=== PATIENT | female | born 1990 | race Caucasian/White ===

== ENCOUNTER 2022-01-23 03:01 | Emergency (ER) | payer BC, SELFPAY ==
[2022-01-23 03:05] VITALS: BP 176/113; PULSE 90; RESP 18; TEMP 36.6; O2SAT 100
--- NOTE | 2022-01-23 03:40 | ED.DENTAL ---
HPI - Dental/Oral General Chief complaint: Dental/Oral Stated complaint: oral pain/nausea Time Seen by Provider: 01/23/22 03:05 Source: patient Mode of arrival: ambulatory Limitations: no limitations History of Present Illness HPI Narrative: Patient is a 31-year-old female complaining of toothache, right upper molar that started a few days ago worse tonight. Patient states her pain is 9 out of 10. Patient states that is scheduled to have her teeth pulled but having insurance issues. Denies any dysphagia, fever, chills or facial swelling. Related Data Allergies Allergy/AdvReac Type Severity Reaction Status Date / Time No Known Allergies Allergy Unverified 01/23/22 03:07 Review of Systems Review of Systems: Per HPI All systems reviewed & are unremarkable except as noted in HPI and below PMFSH Comments Past medical history: None Family history: Unknown Social history: Positive for smoker, no EtOH or drug use Exam Const: General: no acute distress and alert Orientation/consciousness: patient oriented x3 HENMT: General nose exam: Normal nares present Face and sinus: normal facial exam Mouth: Yes moist mucous membranes Throat: posterior oropharynx normal and uvula midline Other: Widespread dental caries and tooth decay Eyes: Conjunctivae: conjunctivae normal Course Vital Signs Vital signs: Vital Signs Temperature 36.6 C 01/23/22 03:05 Pulse Rate 90 01/23/22 03:05 Respiratory Rate 18 01/23/22 03:05 Blood Pressure 176/113 H 01/23/22 03:05 Pulse Oximetry 100 01/23/22 03:05 Temperature 36.6 C 01/23/22 03:05 Pulse Rate 90 01/23/22 03:05 Respiratory Rate 18 01/23/22 03:05 Blood Pressure 176/113 H 01/23/22 03:05 Pulse Oximetry 100 01/23/22 03:05 Discharge Plan Discharge Clinical Impression: Dental caries, Toothache Patient Disposition: Home, Self-Care Condition: Stable Instructions: Toothache (ED) Additional Instructions: Follow-up with your dentist as soon as possible Prescriptions: New clindamycin HCl 300 mg capsule 300 mg PO Q8H Qty: 21 RF: 0 Follow-up/Referrals: PHYSICIAN,VENETIAN BLIND INSTALLER [Primary Care Provider] - Time of Disposition: 03:43
[2022-01-23] MEDS: KETOROLAC 30 MG/ML VIAL (*BKC) IM (03:58)
[2022-01-23 04:05] VITALS: PULSE 65; RESP 18; O2SAT 100
[2022-01-23] MEDS: CLINDAMYCIN HCL 150 MG CAP 300 MG PO (04:05)
== END 2022-01-23 04:05 | disposition home or self-care (01) ==
PROVIDERS: Emergency Provider Emergency Medicine
DX: K02.9 Dental caries, unspecified (principal); F17.200 Nicotine dependence, unspecified, uncomplicated
CPT/HCPCS: 96372; 99283; A9270; J1885

== ENCOUNTER 2025-08-31 09:53 | Emergency (ER) | payer OTHER, SELFPAY ==
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
[2025-08-31 10:09] VITALS: BP 130/92; PULSE 81; RESP 18; TEMP 36.6; O2SAT 99
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
[2025-08-31] MEDS: HYDROcodone/acetaminophen (*CRX) 5-325 MG TABLET 1 TAB PO (11:29)
[2025-08-31 11:55] LABS: BEDSIDEPREGUCG Negative (Negative)
== END 2025-08-31 13:04 | disposition home or self-care (01) ==
PROVIDERS: Emergency Provider Nurse Practitioner Family
DX: S19.9XXA Unspecified injury of neck, initial encounter (principal); S39.92XA Unspecified injury of lower back, initial encounter; S99.911A Unspecified injury of right ankle, initial encounter; S79.911A Unspecified injury of right hip, initial encounter; R51.9 Headache, unspecified; M79.661 Pain in right lower leg; V43.52XA Car driver injured in collision with other type car in traffic accident, initial encounter
CPT/HCPCS: 70450; 72125; 72131; 73502; 73590; 73610; 81025; 99284; A9270